=== PATIENT | male | born 1955 | race Caucasian/White ===

== ENCOUNTER 2023-10-16 07:29 | Outpatient (CLI) | payer MEDICARE, SELFPAY ==
--- NOTE | 2023-10-16 07:56 | ECG_ITS ---
Test Date: 2023-10-16 08:03:43 Measurements Intervals [place] Rate: 56 P: 30 VT: 191 QRS: -17 QRSD: 105 T: 16 QT: 401 QTc: 390 Interpretive Statements SINUS BRADYCARDIA WITH SINUS ARRHYTHMIA No previous ECG available for comparison Electronically Signed On 10-16-2023 11:38:43 CDT by Markie Hebert M.D.
== END 2023-10-16 07:30 | disposition home or self-care (01) ==
LOC: ANHSURGERY 07:34
PROVIDERS: Visit Provider Surgery
DX: I10 Essential (primary) hypertension (principal)
CPT/HCPCS: 93005

== ENCOUNTER 2023-10-21 01:55 | Day surgery (SDC) | payer MEDICARE, SELFPAY ==
--- NOTE | 2023-10-10 13:58 | PC.NURSE ---
Report to the Outpatient Waiting Room, entrance under the green pavilion located off [facility], at time 6:00 AM on date ___10/21/23____. Planned Procedure Time: _7:30 AM . Time changes happen often and if your time is changed the preop area will call you the afternoon before. - You and your visitor will be asked to self-screen and do not enter if you have any COVID symptoms. - A mask is optional within the hospital at this time. Patients may have clear liquids (water, carbonated beverages, clear teas, apple juice) until 3 hours prior to surgery(4:30AM) with a maximum of 20 ounces. - No food from midnight until time of surgery - Infants may have breast milk until 4 hours before surgery, infant formula 6 hours prior to surgery. - Children will be allowed to drink immediately following surgery. If applicable, please bring a bottle or sippy cup to assist with drinking. Juice, water, soda, and popsicles are readily available. For infants on formula, please bring formula the day of surgery. Pacifiers are allowed. Take the following medications with a SIP of water the morning of surgery: __AMLODIPINE,METOPROLOL DO NOT STOP ANY OF YOUR OTHER PRESCRIPTION MEDICATIONS PRIOR TO SURGERY ?EXCEPT THE FOLLOWING Medications to discontinue per physician NONE Please no make-up, nail dutch, hairspray, perfume, deodorant, or body powder the day of surgery. No jewelry (including any body piercings) or valuables the day of surgery, leave them at home. Please take a shower or bath the night before, or the morning of, surgery with an antibacterial soap. Wear comfortable, loose fitting clothing. Children are encouraged to wear pajamas. - Jewelry must be removed prior to entering the operating room. Rings and piercings that are not removed may be cut off. - The hospital will not accept responsibility for valuables. - Please leave all valuables, including medications, at home the day of surgery. If you are going home after surgery, a licensed taxicab driver must drive you home. - NO public transportation without another adult if you receive anesthesia. - We recommend that an adult stay with you for 24 hours following discharge. - We also recommend that you do not drive, make important decision, drink alcoholic beverages, or take any drugs that were not prescribed by your health care provider for at least 24 hours after your discharge ti Follow any additional instructions given to you from your surgeon. If you or anyone in your household have experienced Covid symptoms in the past week, please notify your surgeon or the nurse liaison at the phone number below for possible testing. Telephone instructions given to __PATIENT and asked if any additional questions and then verbalized understanding. Patient advised to call surgeon office or pre surgery nurse liaison [phone] if any additional questions.
[2023-10-10 14:05] VITALS: BMI 31.6
[2023-10-21 11:35] VITALS: BP 139/94; PULSE 84; RESP 18; TEMP 36.5; O2SAT 98
[2023-10-21] MEDS: LACTATED RINGERS 1,000 ML 30 ML IV CONT ×2 (13:00→16:19)
[2023-10-21] MEDS: ACETAMINOPHEN 500 MG TABLET 1000 MG PO (14:15)
[2023-10-21] MEDS: KETOROLAC 15 MG/ML VIAL (*BKC) IV PUSH (14:16)
--- NOTE | 2023-10-21 14:48 | WPDANESEPPF ---
Anes - Initial Pre Proc Eval Procedure: Operation Date: 10/21/23 13:30 Proposed Procedures p Open Umbilical Hernia Repair, No Mesh - Kvng Baldwin MD Date/Time: 10/21/23 14:48 Surgeon: Kvng Baldwin MD Pre Op Diagnosis: Umb Hernia Patient Data Age: 68 Gender: M Height: 1.85 m Weight: 107.7 kg Last Vital Signs Temp 97.7 F 10/21/23 11:35 Pulse 84 10/21/23 11:35 Resp 18 10/21/23 11:35 BP 139/94 H 10/21/23 11:35 Pulse Ox 98 10/21/23 11:35 O2 Del Method Room Air 10/21/23 11:35 Allergies Allergy/AdvReac Type Severity Reaction Status Date / Time No Known Allergies Allergy Verified 10/21/23 13:32 Home Medications Medication Instructions Recorded Confirmed Type amlodipine 10 mg tablet 10 mg PO DAILY 10/07/23 10/21/23 History atorvastatin 40 mg tablet 40 mg PO DAILY 10/07/23 10/21/23 History lisinopril 20 mg tablet 20 mg PO DAILY 10/07/23 10/21/23 History metoprolol succinate 25 mg 12.5 mg PO DAILY 10/07/23 10/21/23 History tablet,extended release 24 hr Patient hx anesthesia problems: none Family hx anesthesia problems: none Results Review: All pre-operative results and documents have been reviewed as part of the pre-operative evaluation. FORMERLY [facility], [facility] Past Medical History Medical History Hx of diverticulitis of colon Hypertension Surgical History Surgical History Hx of tonsillectomy Family History Family History Father Heart disease Mother Heart disease Social History Social History Smoking status: Never smoker Alcohol intake: current Drinks per week: 2 Alcohol use details: weekly Do You Feel Safe in your Home?: Yes Lack of Transportation: No Lack of Food: Never True Current Housing: I Have Housing Concerned About Future Housing: No Difficulty Paying Gas/Electric Bills: No Difficulty Paying for Meds: No Currently Unemployed: No Education: High School Diploma/GED Difficulty w/ Childcare or Family Care: No Living arrangements: with family Occupation/Education: retired Additional occupation/education comments: retired teacher Spiritual care concerns: No Anes - Eval Final PreProcedure Day of Procedure 10/21/23 14:48 Patient weight: obese Heart: regular rate and rhythm Lungs: clear to auscultation Airway: Mallampati scale class II Neurological: alert and oriented Last oral intake: >/= 8 hours ASA classification: II Emergent: no Anesthetic plan: proceed Anesthesia type and monitoring: general LMA and standard monitoring Results Review: All pre-operative results and documents have been reviewed as part of the pre-operative evaluation. HTN, hyperlipidemia. Pt works out w wts 3-4 x weekly, no cp or sob. Informed Consent: The patient's anesthetic plan and its attendant risks and benefits were discussed with the patient/family/POA. Questions were solicited and answers provided to the satisfaction of the patient/family/POA.
--- NOTE | 2023-10-21 14:49 | WPDHPUPDATE1 ---
History and Physical Update Update Date/Time: 10/21/23 14:49 History and Physical has been reviewed, including an updated exam of the patient. There are NO changes in the patient's condition. Risks, benefits, and alternatives have been discussed and questions answered. Patient agrees to proceed with procedure.
[2023-10-21] MEDS: ceFAZolin 2 GM/D5W 50 ML 2 GM/50 ML BAG IVPB (15:20)
[2023-10-21] MEDS: LIDO 1%/EPINEPHRINE 1:100,000 20 ML VIAL INFILTRATE (15:33)
[2023-10-21] MEDS: BUPivacaine HCL 0.5% PF 30 ML VIAL 20 ML INFILTRATE (15:33)
[2023-10-21 16:10] VITALS: BP 108/60; PULSE 70; RESP 16; TEMP 36.1; O2SAT 100
--- NOTE | 2023-10-21 16:14 | W.PM.PROC2 ---
Procedure Note - Detailed Date of Procedure 10/21/23 Pre-op Diagnosis Reducible umbilical hernia Post-op Diagnosis Same Procedure Performed Open umbilical hernia repair without mesh Surgeon Kvng Baldwin MD Anesthesia General Indications Patient is a 68-year-old gentleman presented with a slowly enlarging umbilical bulge. It was reducible. It was slightly tender and he wished to have of elective repair. Defect is thought to be about 2cm in so a open repair without mesh is being performed. Findings 2cm umbilical hernia defect with preperitoneal fat noted protruding through the defect Description of Procedure After informed consent was obtained patient brought to the operating room placed supine position and then anesthesia was administered. The abdomen was then prepped and draped usual sterile fashion. Time-out was then performed correctly identifying the patient as well as procedure to be performed. He was given perioperative IV antibiotics. I then made a small curved incision along the upper portion of the umbilical fold. Dissection was carried deeply down through the dermis skin with a scalpel. I then dissected out the preperitoneal fat that was dissecting into the subcutaneous tissues and followed all the way down to the neck of the hernia which was right at the umbilicus. I then encircled the the umbilical stalk blunt clamp dissection and then disconnected the dermis of the umbilicus from the underlying protruding preperitoneal fat. I then docked the preperitoneal fat and then reduced back through the defect. The defect measured about 2cm in diameter. Then with blunt finger dissection I dissected out the preperitoneal space. Once I had about 2cm of peritoneum dissected off around the edge of the defect I then utilized interrupted 0 Ethibond sutures to primarily close the hernia defect without any tension. I then irrigated out the incision sterile saline solution. Hemostasis was good. I then injected 1% lidocaine mixed with 0.5% Marcaine and epinephrine the subcutaneous tissues around the incision. The inverted umbilicus was recreated by tacking down the dermis of the umbilicus the deeper fascial structures utilizing 3-0 Vicryl suture. The subcutaneous tissues were then closed utilizing layers interrupted 2-0 Vicryl sutures and 3-0 Vicryl sutures. The skin edges were reapproximated utilizing a running subcuticular 4 Monocryl suture. The incision was then cleaned the skin glue was applied. The patient tolerated the procedure well no complications. All sponges, needles, and instrument counts were correct at the end procedure. EBL was __5_cc. The patient was awakened and taken to recovery in stable and satisfactory condition. Implants None Estimated Blood Loss 5 Drains No Packing No Pathology None sent Complications No immediate complications Condition Stable Disposition PACU [facility] Billing Surgery - Charge Forward: Surgery Billing
[2023-10-21 16:25] VITALS: BP 120/65; PULSE 58; RESP 14; O2SAT 100
[2023-10-21 16:40] VITALS: BP 127/48; PULSE 80; O2SAT 98
[2023-10-21 16:50] VITALS: BP 125/72; PULSE 74; RESP 16
[2023-10-21 17:20] VITALS: BP 125/71; PULSE 63; RESP 16
== END 2023-10-21 17:30 | disposition home or self-care (01) ==
PROVIDERS: Visit Provider Surgery
PROC: (CPT 49591; principal; 2023-10-21 13:30)
DX: K42.9 Umbilical hernia without obstruction or gangrene (principal); I10 Essential (primary) hypertension; E66.9 Obesity, unspecified; Z68.31 Body mass index [BMI] 31.0-31.9, adult
CPT/HCPCS: 49591; A9270; J0690; J1100; J1885; J2250; J2371; J2405; J2704; J3010; J7120